=== PATIENT | female | born 1940 | race African-American/Black ===

== ENCOUNTER 2020-11-27 05:40 | Emergency (ER) | payer OTHER, MEDICAID ==
[~2020-11-27] VITALS: Ht 160 cm; Wt 72.6 kg
[2020-11-27 07:08] LABS: Basophils # (auto) 0 10 ^3/uL (0-0.2); Basophils % (auto) 0.4 % (0.0-2.0); Eosinophils # (auto) 0.1 10 ^3/uL (0-0.8); Eosinophils % (auto) 1.7 % (0.0-7.0); Hematocrit 35.7 % (36.0-46.0); Hemoglobin 12.5 g/dL (12.2-16.2); Lymphocytes # (auto) 3.1 10 ^3/uL (0.4-5.4); Lymphocytes % (auto) 40.7 % (10.0-50.0); Mean Corpuscular Hemoglobin 28.4 pg (28.0-32.0); Mean Corpuscular Volume 81.2 fL (80.0-100.0); Monocytes # (auto) 0.3 10 ^3/uL (0-1.3); Monocytes % (auto) 4.2 % (0.0-12.0); Nucleated Red Blood Cells % 0.2 %; Red Cell Distribution Width 15.7 % (11.8-14.3); White Blood Cell 7.6 10^3/uL (4.4-10.8)
[2020-11-27 07:27] LABS: Albumin 3.5 g/dL (3.4-5.0); BUN/Creatinine Ratio 15.4; Calcium 9.3 mg/dL (8.5-10.1); Potassium 3.3 mmol/L (3.5-5.1)
[2020-11-27 07:29] LABS: Bilirubin, Total 0.5 mg/dL (0.2-1.0)
[2020-11-27] MEDS ORDERED: POTASSIUM EFFERVESENT TAB 25 MEQ PO ONE (08:30)
[2020-11-27 08:44] VITALS: BP 111/76
== END 2020-11-27 08:53 | disposition home or self-care (01) ==
LOC: ER 05:40
DX: S09.90XA Unspecified injury of head, initial encounter (principal); M25.512 Pain in left shoulder; I10 Essential (primary) hypertension; Z88.0 Allergy status to penicillin; Z88.2 Allergy status to sulfonamides; Z88.1 Allergy status to other antibiotic agents; Z88.8 Allergy status to other drugs, medicaments and biological substances; Z88.6 Allergy status to analgesic agent; W06.XXXA Fall from bed, initial encounter; Y93.89 Activity, other specified; Y92.89 Other specified places as the place of occurrence of the external cause; Y99.8 Other external cause status
CPT/HCPCS: 36415; 70450; 72170; 73030; 80053; 85025

== ENCOUNTER 2022-05-09 14:43 | Inpatient (IN) | payer OTHER, MEDICAID ==
[~2022-05-09] VITALS: Ht 167.6 cm; Wt 79.0 kg
[2022-05-09 15:18] LABS: Hematocrit 37.3 % (36.0-46.0); Hemoglobin 12.5 g/dL (12.2-16.2); Mean Corpuscular Hemoglobin 27.1 pg (28.0-32.0); Mean Corpuscular Hgb Conc. 33.6 g/dL (32.0-36.0); Mean Corpuscular Volume 80.5 fL (80.0-100.0); Red Blood Cells 4.63 10^6/uL (4.0-5.20); Red Cell Distribution Width 16.8 % (11.8-14.3); White Blood Cell 13.6 10^3/uL (4.4-10.8)
[2022-05-09 15:30] LABS: Albumin 3.1 g/dL (3.4-5.0); BUN/Creatinine Ratio 20.8; Calcium 9.3 mg/dL (8.5-10.1); Potassium 3.1 mmol/L (3.5-5.1)
[2022-05-09 15:32] LABS: Bilirubin, Total 0.9 mg/dL (0.2-1.0); Total Protein 7.6 g/dL (6.4-8.2)
[2022-05-09 15:33] LABS: Band Neutrophils % (manual) 0; Basophils % (manual) 0 (0.0-2.0); Metamyelocytes % 0; Myelocytes % 0; Promyelocytes % 0
[2022-05-09] MEDS ORDERED: IOHEXOL 350 MG/ML 100ML IJ ONE (15:33)
[2022-05-09] MEDS ORDERED: POTASSIUM EFFERVESENT TAB 25 MEQ PO ONE (16:00)
[2022-05-09 16:01] LABS: Blast Cells 1; Eosinophils % (manual) 4 (0-7); Lymphocytes % (manual) 48 (10.0-50.0); Monocytes % (manual) 4 (0-12); Reactive Lymphocytes 1
[2022-05-09] MEDS ORDERED: AZITHROMYCIN 500MG/ 250ML 250 ML IV ONE (17:00)
[2022-05-09] MEDS ORDERED: ONDANSETRON HCL 4 MG/2 ML VIAL IV ONE (17:00)
[2022-05-09] MEDS ORDERED: cefTRIAXone 1GM/50ML D5W 50 ML IV ONE (17:00)
[2022-05-09] MEDS ORDERED: ASPirin 325 MG TAB PO ONE (17:45)
[2022-05-09] MEDS ORDERED: PANTOPRAZOLE 40 MG/10 ML VIAL INJ IV ONE (17:45)
[2022-05-09] MEDS ORDERED: MORPHINE SULFATE INJ 2 MG/ml SYRG IV PRN (17:45)
[2022-05-09] MEDS ORDERED: NITROGLYCERIN 0.4 MG SL TAB SL PRN (17:45)
[2022-05-09] MEDS ORDERED: ACETAMINOPHEN 325 MG TAB PO PRN (17:45)
[2022-05-09] MEDS ORDERED: OMEP-260 PO (17:52)
[2022-05-09 18:51] LABS: Cholesterol 114 mg/dL (< 200)
[2022-05-09 18:53] LABS: HDL Cholesterol 20 mg/dL (40-59); LDL Cholesterol 62 mg/dL (< 100); Triglycerides 137 mg/dL (< 150)
[2022-05-09] MEDS: POTASSIUM CHL 20MEQ/100ML 100 ML IV SCH ×2 (19:08→22:10)
[2022-05-09 19:58] LABS: Urine Bacteria FEW /hpf (None Seen); Urine Blood Negative /uL (Negative); Urine Mucus FEW (None Seen); Urine WBC 1 /hpf (0 - 5)
[2022-05-09 19:59] LABS: Urine Specific Gravity 1.055 (1.001-1.035)
[2022-05-10 05:34] LABS: Hematocrit 30.3 % (36.0-46.0); Hemoglobin 10.2 g/dL (12.2-16.2); Mean Corpuscular Hemoglobin 26.5 pg (28.0-32.0); Mean Corpuscular Hgb Conc. 33.8 g/dL (32.0-36.0); Mean Corpuscular Volume 78.5 fL (80.0-100.0); Red Blood Cells 3.87 10^6/uL (4.0-5.20); Red Cell Distribution Width 16.2 % (11.8-14.3); White Blood Cell 14.2 10^3/uL (4.4-10.8)
[2022-05-10 05:41] LABS: Albumin 2.6 g/dL (3.4-5.0); Calcium 8.4 mg/dL (8.5-10.1); Potassium 3.3 mmol/L (3.5-5.1)
[2022-05-10 05:44] LABS: Bilirubin, Total 0.6 mg/dL (0.2-1.0); Total Protein 6.5 g/dL (6.4-8.2)
[2022-05-10 05:54] LABS: Basophils % (manual) 0 (0.0-2.0); Blast Cells 0; Metamyelocytes % 0; Promyelocytes % 0; Reactive Lymphocytes 0
[2022-05-10] MEDS: cefTRIAXone 1GM/50ML D5W 50 ML IV SCH (09:09)
[2022-05-10 09:23] LABS: Band Neutrophils % (manual) 9; Eosinophils % (manual) 5 (0-7); Lymphocytes % (manual) 56 (10.0-50.0); Monocytes % (manual) 3 (0-12); Myelocytes % 2
[2022-05-10] MEDS: AZITHROMYCIN 500MG/ 250ML 250 ML IV SCH (09:46)
[2022-05-10] MEDS: PANTOPRAZOLE 40 MG/10 ML VIAL INJ IV SCH (09:46)
[2022-05-10] MEDS: ENOXAPARIN SOD 40 MG/0.4 ML SYRINGE SC SCH (09:47)
[2022-05-10] MEDS ORDERED: POTASSIUM EFFERVESENT TAB 25 MEQ PO ONE (10:00)
[2022-05-10] MEDS ORDERED: ASPirin 81 mg TAB PO SCH (10:00)
[2022-05-10] MEDS ORDERED: ONDANSETRON HCL 4 MG/2 ML VIAL IV PRN (14:30)
[2022-05-10] MEDS ORDERED: MORPHINE SULFATE INJ 2 MG/ml SYRG IV PRN (14:30)
[2022-05-10 17:17] VITALS: BP 124/73
[2022-05-10 17:34] LABS: INR 1.15 (0.9-1.15); Partial Thromboplastin Time 26.5 sec (24.6-33.4)
[2022-05-10 19:28] VITALS: BP 124/73
[2022-05-10 22:00] VITALS: BP 135/65
[2022-05-11 05:00] VITALS: BP 148/70
[2022-05-11 06:29] LABS: Hemoglobin 11.3 g/dL (12.2-16.2)
[2022-05-11 06:32] LABS: Hematocrit 33.2 % (36.0-46.0); Mean Corpuscular Hemoglobin 27.1 pg (28.0-32.0); Mean Corpuscular Hgb Conc. 34.1 g/dL (32.0-36.0); Mean Corpuscular Volume 79.6 fL (80.0-100.0); Red Blood Cells 4.17 10^6/uL (4.0-5.20); Red Cell Distribution Width 16.9 % (11.8-14.3)
[2022-05-11 06:33] LABS: INR 1.15 (0.9-1.15); Partial Thromboplastin Time 25.6 sec (24.6-33.4)
[2022-05-11 06:36] LABS: Calcium 8.8 mg/dL (8.5-10.1)
[2022-05-11 06:40] LABS: Basophils % (manual) 0 (0.0-2.0); Metamyelocytes % 0; Myelocytes % 0; Promyelocytes % 0
[2022-05-11 06:58] LABS: Potassium 2.9 mmol/L (3.5-5.1)
[2022-05-11] MEDS ORDERED: POTASSIUM CHL 20MEQ/100ML 100 ML IV ONE (07:30)
[2022-05-11 08:27] LABS: Band Neutrophils % (manual) 4; Blast Cells 1; Eosinophils % (manual) 7 (0-7); Lymphocytes % (manual) 43 (10.0-50.0); Monocytes % (manual) 7 (0-12); Reactive Lymphocytes 7
[2022-05-11] MEDS: PANTOPRAZOLE 40 MG/10 ML VIAL INJ IV SCH (08:53)
[2022-05-11] MEDS: cefTRIAXone 1GM/50ML D5W 50 ML IV SCH (08:53)
[2022-05-11 09:00] VITALS: BP 160/78
[2022-05-11] MEDS: ENOXAPARIN SOD 40 MG/0.4 ML SYRINGE SC SCH (10:00)
[2022-05-11] MEDS ORDERED: hydrALAZINE HCL 20 MG/ML VL IV PRN (11:00)
[2022-05-11] MEDS ORDERED: POTASSIUM CHL 20 Meq TABLET PO ONE (11:00)
[2022-05-11] MEDS ORDERED: amLODIPine BESYLATE 5 MG TAB PO ONE (11:00)
[2022-05-11] MEDS: AZITHROMYCIN 500MG/ 250ML 250 ML IV SCH (11:45)
[2022-05-11 14:23] VITALS: BP 154/85
[2022-05-11 16:53] VITALS: BP 139/66
[2022-05-11 22:00] VITALS: BP 113/59
[2022-05-12 05:00] VITALS: BP 155/81
[2022-05-12 05:25] VITALS: BP 146/78
[2022-05-12 06:33] LABS: BUN/Creatinine Ratio 13.6; Calcium 8.9 mg/dL (8.5-10.1); Magnesium 1.8 mg/dL (1.6-2.6); Potassium 3.5 mmol/L (3.5-5.1)
[2022-05-12] MEDS: PANTOPRAZOLE 40 MG/10 ML VIAL INJ IV SCH (08:40)
[2022-05-12] MEDS: cefTRIAXone 1GM/50ML D5W 50 ML IV SCH (08:40)
[2022-05-12] MEDS: amLODIPine BESYLATE 5 MG TAB PO SCH (08:41)
[2022-05-12] MEDS: ENOXAPARIN SOD 40 MG/0.4 ML SYRINGE SC SCH (08:41)
[2022-05-12 09:00] VITALS: BP 141/76
[2022-05-12] MEDS: AZITHROMYCIN 500MG/ 250ML 250 ML IV SCH (09:24)
[2022-05-12] MEDS ORDERED: IOHEXOL 300 MG/ML 100ML BOTTLE IJ ONE (11:51)
[2022-05-12 13:00] VITALS: BP 135/79
[2022-05-12 17:00] VITALS: BP 128/75
[2022-05-12 22:00] VITALS: BP 121/57
[2022-05-13 05:00] VITALS: BP 144/81
[2022-05-13 06:05] LABS: Hemoglobin 10.2 g/dL (12.2-16.2)
[2022-05-13 06:08] LABS: Hematocrit 30.9 % (36.0-46.0); Mean Corpuscular Hemoglobin 26.2 pg (28.0-32.0); Mean Corpuscular Volume 79.4 fL (80.0-100.0); Red Blood Cells 3.89 10^6/uL (4.0-5.20); Red Cell Distribution Width 16.8 % (11.8-14.3); White Blood Cell 8.1 10^3/uL (4.4-10.8)
[2022-05-13 06:28] LABS: BUN/Creatinine Ratio 18.5; Basophils % (manual) 0 (0.0-2.0); Blast Cells 0; Calcium 8.7 mg/dL (8.5-10.1); Metamyelocytes % 0; Myelocytes % 0; Potassium 3.5 mmol/L (3.5-5.1); Promyelocytes % 0; Reactive Lymphocytes 0
[2022-05-13 08:53] LABS: Band Neutrophils % (manual) 7; Eosinophils % (manual) 5 (0-7); Lymphocytes % (manual) 67 (10.0-50.0); Monocytes % (manual) 8 (0-12)
[2022-05-13 09:00] VITALS: BP 133/77
[2022-05-13] MEDS: PANTOPRAZOLE 40 MG/10 ML VIAL INJ IV SCH (09:44)
[2022-05-13] MEDS: ENOXAPARIN SOD 40 MG/0.4 ML SYRINGE SC SCH (09:44)
[2022-05-13] MEDS: amLODIPine BESYLATE 5 MG TAB PO SCH (09:45)
[2022-05-13] MEDS: AZITHROMYCIN 500MG/ 250ML 250 ML IV SCH (09:49)
[2022-05-13] MEDS: cefTRIAXone 1GM/50ML D5W 50 ML IV SCH (09:49)
[2022-05-13 11:51] LABS: Hepatitis C Antibody Negative (Negative)
[2022-05-13] MEDS ORDERED: AZITTAB2 PO (12:18)
[2022-05-13 13:00] VITALS: BP 150/84
== END 2022-05-13 15:30 | disposition home or self-care (01) | DRG 824 ==
LOC: ER 14:43 → TELE 17:39 → TELE-E-ADS 05-10 15:22 → TELE-EAST 05-10 18:44 → EAST 05-12 12:37
PROVIDERS: ADMIT Nurse Practitioner Family; ATTEND Internal Medicine
PROC: 07B63ZX Excision of Left Axillary Lymphatic, Percutaneous Approach, Diagnostic (ICD-10-PCS; principal; 2022-05-11)
DX: C85.90 Non-Hodgkin lymphoma, unspecified, unspecified site (principal); I24.9 Acute ischemic heart disease, unspecified; I50.42 Chronic combined systolic (congestive) and diastolic (congestive) heart failure; Z20.822 Contact with and (suspected) exposure to COVID-19; E78.5 Hyperlipidemia, unspecified; E87.6 Hypokalemia; I11.0 Hypertensive heart disease with heart failure; R73.03 Prediabetes; I08.2 Rheumatic disorders of both aortic and tricuspid valves; K80.20 Calculus of gallbladder without cholecystitis without obstruction; D72.820 Lymphocytosis (symptomatic); R59.1 Generalized enlarged lymph nodes; Z88.0 Allergy status to penicillin; Z88.6 Allergy status to analgesic agent; Z88.2 Allergy status to sulfonamides; Z88.5 Allergy status to narcotic agent; Z88.8 Allergy status to other drugs, medicaments and biological substances; Z86.718 Personal history of other venous thrombosis and embolism; Z82.5 Family history of asthma and other chronic lower respiratory diseases; Z82.49 Family history of ischemic heart disease and other diseases of the circulatory system
CPT/HCPCS: 36415; 71045; 71260; 71275; 74177; 76942; 80048; 80053; 80061; 81001; 83036; 83615; 83735; 83880; 84132; 84443; 84484; 85007; 85027; 85610; 85730; 86803; 87340; 87426; 93005; 93306; 93970; 96365; 96375; 97116; 97530; C9113; G0378; J0696; J2405; J3480

== ENCOUNTER 2023-10-21 11:24 | Inpatient (IN) | payer OTHER, MEDICAID ==
[~2023-10-21] VITALS: Ht 160 cm; Wt 74.6 kg
[~2023-10-21 11:24] MED LIST: AZITTAB2 PO; OMEP1CAP70 PO
[2023-10-21 13:03] LABS: Basophils # (auto) 0 10 ^3/uL (0-0.2); Basophils % (auto) 0.5 % (0.0-2.0); Eosinophils # (auto) 0.5 10 ^3/uL (0-0.8); Eosinophils % (auto) 7.8 % (0.0-7.0); Hematocrit 33.5 % (36.0-46.0); Hemoglobin 11.5 g/dL (12.2-16.2); Lymphocytes # (auto) 3.3 10 ^3/uL (0.4-5.4); Lymphocytes % (auto) 54.9 % (10.0-50.0); Mean Corpuscular Hemoglobin 29.5 pg (28.0-32.0); Mean Corpuscular Hgb Conc. 34.4 g/dL (32.0-36.0); Mean Corpuscular Volume 85.7 fL (80.0-100.0); Monocytes # (auto) 0.3 10 ^3/uL (0-1.3); Neutrophils # (auto) 1.9 10 ^3/uL (1.6-8.6); Neutrophils % (auto) 31.8 % (37.0-80.0); Nucleated Red Blood Cells % 0.4 %; Red Blood Cells 3.91 10^6/uL (4.0-5.20); Red Cell Distribution Width 15.9 % (11.8-14.3)
[2023-10-21 13:18] LABS: Urine Bacteria None Seen /hpf (None Seen)
[2023-10-21 13:34] LABS: Urine Blood Negative /uL (Negative); Urine Clarity Clear (Clear); Urine Color Yellow (Yellow); Urine Protein, UAD Negative (Negative); Urine Specific Gravity 1.014 (1.001-1.035); Urine Urobilinogen Normal (Negative); Urine WBC 1 /hpf (0 - 5)
[2023-10-21 14:20] LABS: Chloride 107 mmol/L (98-107); Potassium 4.2 mmol/L (3.5-5.1); Sodium 140 mmol/L (136-145)
[2023-10-21 14:21] LABS: Anion Gap 6 (5-15); Carbon Dioxide 27 mmol/L (20-30)
[2023-10-21 14:22] LABS: Calcium 10.3 mg/dL (8.5-10.1)
[2023-10-21 14:26] LABS: BUN/Creatinine Ratio 12.6 (10.0-20.0); Blood Urea Nitrogen 11 mg/dL (9-23); Glucose 81 mg/dL (74-106)
[2023-10-21 15:30] VITALS: PULSE 57; RESP 14; O2SAT 100
[2023-10-21] MEDS ORDERED: NITROGLYCERIN 0.4 MG SL TAB SL PRN (15:45)
[2023-10-21] MEDS ORDERED: ASPirin 81 mg TAB PO ONE (17:45)
[2023-10-21 18:12] LABS: Erythrocyte Sedimentation Rate 21 mm/hr (0-20)
[2023-10-21 18:34] VITALS: BP 111/64; PULSE 55; RESP 18; TEMP 98; O2SAT 100
[2023-10-21 21:00] VITALS: BP 111/64; PULSE 55; RESP 18; TEMP 98; O2SAT 100
[2023-10-21] MEDS: ATORVASTATIN 20 MG TAB PO SCH (22:18)
[2023-10-22] VITALS (8 sets, daily range): BP systolic 11–155; BP diastolic 61–69; PULSE 51–78; RESP 16–20; TEMP 97.9–98.3; O2SAT 96–100
[2023-10-22] MEDS ORDERED: HYDR25TA5 PO (00:27)
[2023-10-22] MEDS ORDERED: ALLO300T2 PO (00:27)
[2023-10-22] MEDS ORDERED: ERGO1CAP12 PO (00:27)
[2023-10-22] MEDS ORDERED: ASCO500T11 PO (00:27)
[2023-10-22] MEDS ORDERED: MULT-732 PO (00:27)
[2023-10-22] MEDS ORDERED: MAGN400C3 PO (00:27)
[2023-10-22] MEDS ORDERED: ZINC220C8 PO (00:27)
[2023-10-22] MEDS ORDERED: METO-289 PO (00:27)
[2023-10-22] MEDS ORDERED: CYA100I IM (00:27)
[2023-10-22] MEDS ORDERED: POTA-211 PO (00:27)
[2023-10-22 06:54] LABS: Triglycerides 71 mg/dL (< 150)
[2023-10-22 06:55] LABS: LDL Cholesterol 70 mg/dL (< 100)
[2023-10-22 06:56] LABS: Cholesterol 129 mg/dL (< 200); HDL Cholesterol 47 mg/dL (40-59)
[2023-10-22] MEDS ORDERED: ASPirin 81 mg TAB PO SCH (10:00)
[2023-10-22] MEDS: ALLOPURINOL 100 MG TAB PO SCH (11:39)
[2023-10-22] MEDS ORDERED: CHOL20007 PO (11:45)
[2023-10-22] MEDS: SODIUM CHLORIDE 0.9% 1,000 ML IV SCH (12:00)
[2023-10-22] MEDS: PANTOPRAZOLE 40 MG TAB PO SCH (13:03)
[2023-10-22] MEDS: METOPROLOL SUCCINATE XL 50 MG TAB PO SCH (13:03)
[2023-10-22] MEDS: hydroCHLOROthiazide 25 MG TAB PO SCH (13:04)
[2023-10-23 01:00] VITALS: BP 109/53; PULSE 7; RESP 18; TEMP 98.1; O2SAT 97
[2023-10-23 05:00] VITALS: BP 125/67; PULSE 56; RESP 20; TEMP 98.5; O2SAT 98
[2023-10-23 06:27] LABS: Chloride 108 mmol/L (98-107); Potassium 3.8 mmol/L (3.5-5.1); Sodium 138 mmol/L (136-145)
[2023-10-23 06:28] LABS: Anion Gap 7 (5-15); Calcium 10.2 mg/dL (8.5-10.1); Carbon Dioxide 23 mmol/L (20-30)
[2023-10-23 06:33] LABS: Blood Urea Nitrogen 11 mg/dL (9-23); Glucose 90 mg/dL (74-106); Magnesium 1.9 mg/dL (1.6-2.6)
[2023-10-23 06:38] LABS: BUN/Creatinine Ratio 13.4 (10.0-20.0)
[2023-10-23 07:20] LABS: Hemoglobin 11.1 g/dL (12.2-16.2); Mean Corpuscular Hemoglobin 29.2 pg (28.0-32.0); Mean Corpuscular Hgb Conc. 33.7 g/dL (32.0-36.0); Mean Corpuscular Volume 86.6 fL (80.0-100.0); Red Blood Cells 3.81 10^6/uL (4.0-5.20); White Blood Cell 6.9 10^3/uL (4.4-10.8)
[2023-10-23 07:27] LABS: Band Neutrophils % (manual) 0; Basophils % (manual) 0 (0.0-2.0); Blast Cells 0; Metamyelocytes % 0; Myelocytes % 0; Promyelocytes % 0; Reactive Lymphocytes 0
[2023-10-23 08:00] VITALS: PULSE 53; PULSE 71; RESP 20
[2023-10-23 08:49] LABS: Eosinophils % (manual) 2 (0-7); Lymphocytes % (manual) 60 (10.0-50.0); Monocytes % (manual) 3 (0-12)
[2023-10-23 08:50] LABS: Platelet Estimate Adequate; RBC Morphology Normal
[2023-10-23] MEDS: POTASSIUM CHL 20 Meq TABLET PO SCH (09:06)
[2023-10-23] MEDS ORDERED: IOHEXOL 350 MG/ML 100ML IJ ONE (14:02)
[2023-10-23 17:00] VITALS: BP 145/62; PULSE 65; RESP 18; TEMP 98.3; O2SAT 99
[2023-10-23] MEDS: MAGNESIUM OXIDE 400 MG TAB PO SCH (18:00)
[2023-10-23] MEDS: predniSONE 20 MG TAB PO SCH (18:37)
[2023-10-23 21:00] VITALS: BP 116/57; PULSE 61; RESP 17; TEMP 97.7; O2SAT 96
[2023-10-24] VITALS (7 sets, daily range): BP systolic 116–128; BP diastolic 57–72; PULSE 60–66; RESP 16–18; TEMP 97.8–98.1; O2SAT 98
[2023-10-24] MEDS ORDERED: GABA-1308 PO (10:22)
[2023-10-24] MEDS ORDERED: MEGE40TA4 PO (10:22)
[2023-10-24] MEDS ORDERED: ERGO1CAP23 PO (10:22)
[2023-10-24] MEDS ORDERED: DONE5TAB80 PO (10:22)
[2023-10-24] MEDS ORDERED: NAP500T PO (10:22)
[2023-10-24] MEDS ORDERED: METH4PAK PO (12:25)
[2023-10-24] MEDS ORDERED: PRED20TA2 PO (12:25)
== END 2023-10-24 13:58 | disposition home or self-care (01) | DRG 74 ==
LOC: ER 11:24 → TELE 15:49 → TELE-WESTW 17:56
PROVIDERS: ADMIT Nurse Practitioner Family; ATTEND Family Medicine
DX: G51.0 Bell's palsy (principal); S82.141A Displaced bicondylar fracture of right tibia, initial encounter for closed fracture; A52.19 Other symptomatic neurosyphilis; I50.32 Chronic diastolic (congestive) heart failure; E03.9 Hypothyroidism, unspecified; E66.9 Obesity, unspecified; M17.11 Unilateral primary osteoarthritis, right knee; I11.0 Hypertensive heart disease with heart failure; G30.9 Alzheimer's disease, unspecified; F02.80 Dementia in other diseases classified elsewhere, unspecified severity, without behavioral disturbance, psychotic disturbance, mood disturbance, and anxiety; E78.00 Pure hypercholesterolemia, unspecified; G89.29 Other chronic pain; I44.0 Atrioventricular block, first degree; Z85.72 Personal history of non-Hodgkin lymphomas; Z88.6 Allergy status to analgesic agent; Z88.0 Allergy status to penicillin; Z90.710 Acquired absence of both cervix and uterus; Z68.29 Body mass index [BMI] 29.0-29.9, adult; Z82.49 Family history of ischemic heart disease and other diseases of the circulatory system; Z86.718 Personal history of other venous thrombosis and embolism; Z82.5 Family history of asthma and other chronic lower respiratory diseases; X58.XXXA Exposure to other specified factors, initial encounter; Y93.89 Activity, other specified; Y92.89 Other specified places as the place of occurrence of the external cause; Y99.8 Other external cause status
CPT/HCPCS: 36415; 70450; 70496; 70551; 71046; 73562; 80048; 80061; 81001; 83036; 83735; 84100; 84443; 84484; 85007; 85025; 85027; 85379; 85652; 86592; 93306; 93886; 97110; 97116; 97163; 97530; G0378